=== PATIENT | female | born 1980 | race Caucasian/White ===

== ENCOUNTER → 2023-07-15 15:40 | Outpatient (REF) | payer OTHER, SELFPAY | LOC: HWWDC 15:40 | PROVIDERS: ATTENDING PHYSICIAN Obstetrics & Gynecology Gynecology; FAMILY PHYSICIAN Internal Medicine | DX: Z12.31 Encounter for screening mammogram for malignant neoplasm of breast (principal) | CPT/HCPCS: 77063; 77067 ==

== ENCOUNTER → 2025-05-23 08:12 | Outpatient (REF) | payer OTHER, SELFPAY | LOC: HWWDC 08:12 | PROVIDERS: ATTENDING PHYSICIAN Obstetrics & Gynecology Gynecology; FAMILY PHYSICIAN Nurse Practitioner Adult Health | DX: Z12.39 Encounter for other screening for malignant neoplasm of breast (principal) | CPT/HCPCS: 77063; 77067 ==